=== PATIENT | male | born 1960 | race Caucasian/White ===

== ENCOUNTER 2023-07-08 05:37 | Day surgery (SDC) | payer OTHER ==
[~2023-07-08] VITALS: Ht 172.7 cm; Wt 63.5 kg
[2023-07-08] MEDS ORDERED: LIDOCAINE 2% 100 MG/5 ML UJET TP ONE (07:24)
[2023-07-08] MEDS ORDERED: fentaNYL citrate 0.05 MG/ML VIAL ONE (07:24)
[2023-07-08] MEDS ORDERED: fentaNYL citrate 0.05 MG/ML VIAL IVP ONE (08:40)
== END 2023-07-08 09:30 | disposition home or self-care (01) ==
LOC: MDS 05:37 → MMU 06:20 → MDS 09:30
PROVIDERS: ATTEND Internal Medicine Gastroenterology
DX: Z12.11 Encounter for screening for malignant neoplasm of colon (principal); I10 Essential (primary) hypertension; E78.5 Hyperlipidemia, unspecified; E11.9 Type 2 diabetes mellitus without complications; I25.10 Atherosclerotic heart disease of native coronary artery without angina pectoris; Z85.46 Personal history of malignant neoplasm of prostate; Z79.82 Long term (current) use of aspirin; Z79.899 Other long term (current) drug therapy
CPT/HCPCS: 45378; 82948; J3010